=== PATIENT | male | born 1995 | race Caucasian/White ===

== ENCOUNTER 2025-03-29 08:36 | Emergency (ER) | payer OTHER, BC ==
[~2025-03-29] VITALS: Ht 170.2 cm; Wt 77.1 kg
[2025-03-29 09:07] VITALS: BP 155/101
[2025-03-29] MEDS ORDERED: HYDR1TAB94 PO (11:16)
== END 2025-03-29 11:36 | disposition home or self-care (01) ==
LOC: ER 08:36
DX: S42.022A Displaced fracture of shaft of left clavicle, initial encounter for closed fracture (principal); V86.56XA Driver of dirt bike or motor/cross bike injured in nontraffic accident, initial encounter
CPT/HCPCS: 73000; 73030; 99283-25

== ENCOUNTER 2025-04-10 10:59 | Day surgery (SDC) | payer BC ==
[~2025-04-10] VITALS: Ht 170.2 cm; Wt 78.8 kg
[~2025-04-10 10:59] MED LIST: HYDR1TAB94 PO
[2025-04-10] MEDS ORDERED: CeFAZolin Sodium 2,000 MG VIAL ONE (11:12)
[2025-04-10] MEDS ORDERED: IBUP200 (11:19)
[2025-04-10] MEDS ORDERED: Lactated Ringer's 1,000 ML IV ONE (11:25)
[2025-04-10] MEDS ORDERED: Tranexamic Acid 100 ML IV ONE (11:45)
[2025-04-10] MEDS ORDERED: Bupivacaine 0.5% W/EPI 1:200000 SDV 30 ML Vial ONE (12:22)
[2025-04-10] MEDS ORDERED: Rocuronium Bromide 10 MG/ML 5ML Injection IV ONE (12:23)
[2025-04-10] MEDS ORDERED: propofoL 20 ML IV ONE (12:23)
[2025-04-10] MEDS ORDERED: FentaNYL Citrate 50 MCG/ML 2 ML Injection ONE ×2 (12:25→13:14)
[2025-04-10] MEDS ORDERED: Dexamethasone Sod Phos 10 MG/ML 1ML VIAL ONE (12:48)
[2025-04-10] MEDS ORDERED: Ondansetron HCl 2 MG / ML 2ML Vial ONE (13:51)
[2025-04-10] MEDS ORDERED: Sugammadex Sodium 200 MG/2ML SDV (100 MG/ML) ONE (13:58)
[2025-04-10] MEDS ORDERED: OxyCODONE HCL 5 MG TAB ONE (15:00)
[2025-04-10 15:09] VITALS: BP 156/80
--- NOTE | 2025-04-10 15:50 | NUR ---
04/10/25 1550 [place] [facility] REPORTS PAIN MEDICATION BENEFICIAL WITH CURRENT PAIN AT A TOLERABLE LEVEL OF 3/10.
== END 2025-04-10 15:48 | disposition home or self-care (01) ==
LOC: ORSCSDS 10:59
PROVIDERS: Orthopaedic Surgery Sports Medicine
PROC: 0PSB04Z Reposition Left Clavicle with Internal Fixation Device, Open Approach (ICD-10-PCS; principal; 2025-04-10 12:30)
DX: S42.002A Fracture of unspecified part of left clavicle, initial encounter for closed fracture (principal)
CPT/HCPCS: A9270; C1713; J0690; J1100; J2405; J2704; J3010